=== PATIENT | female | born 1980 | race African-American/Black ===

== ENCOUNTER 2017-08-30 11:46 | Inpatient (IN) | payer MEDICAID ==
[~2017-08-30] VITALS: Ht 170.2 cm; Wt 88.5 kg
[2017-08-30 12:14] LABS: APPEARANCE SLT CLOUDY (CLEAR); BILIRUBIN NEGATIVE (NEGATIVE); COLOR YELLOW (YELLOW); GLUCOSE NEGATIVE (NEGATIVE); KETONE NEGATIVE (NEGATIVE); NITRITE NEGATIVE (NEGATIVE); PROTEIN 1+ mg/dL (NEGATIVE); SPECIFIC GRAVITY 1.025 (1.005-1.020); UROBILINOGEN NORMAL (NORMAL)
[2017-08-30 12:19] LABS: BACTERIA MODERATE /hpf (NONE SEEN); RED CELLS - URINE 25-50 /hpf (0-5)
[2017-08-30 12:21] LABS: MUCUS >1+ /lpf (NONE SEEN)
[2017-08-30 12:36] LABS: HCG SERUM NEGATIVE (NEGATIVE)
[2017-08-30 12:59] LABS: BASOPHILS 0.1 % (0-2); EOSINOPHILS 0 % (0-7); HEMATOCRIT 22.6 % (36.0-48.0); IMMATURE GRANULOCYTES 0.3 % (0-5); MCHC 27.4 g/dL (31.0-37.0); MCV 62.6 fL (80.0-100.0); MEAN PLATELET VOLUME 9.9 fL (7.4-10.4); MONOCYTES 3.8 % (2-11); NEUTROPHILS 87.8 % (40-80); RBC 3.61 10x6/uL (4.00-5.40); WBC 17.6 10x3/uL (4.8-10.8)
[2017-08-30 13:07] LABS: MCH 17.2 pg (26.0-34.0); PLATELET COUNT 483 10x3/uL (130-400)
[2017-08-30 13:09] LABS: HEMOGLOBIN 6.2 g/dL (12-16)
[2017-08-30 17:15] VITALS: BP 112/57; BMI 30.6
[2017-08-30 17:31] VITALS: BP 112/57
[2017-08-30 19:26] LABS: BASOPHILS 0.1 % (0-2); EOSINOPHILS 0.3 % (0-7); IMMATURE GRANULOCYTES 0.3 % (0-5); LYMPHOCYTES 18.4 % (15-50); MCHC 28.4 g/dL (31.0-37.0); MONOCYTES 5.7 % (2-11); NEUTROPHILS 75.2 % (40-80); PLATELET COUNT 405 10x3/uL (130-400); RBC 3.85 10x6/uL (4.00-5.40); RDW 21.2 % (11.5-14.5); WBC 15.4 10x3/uL (4.8-10.8)
[2017-08-30 19:29] LABS: HEMOGLOBIN 7.1 g/dL (12-16); MCH 18.4 pg (26.0-34.0); MCV 64.9 fL (80.0-100.0)
[2017-08-30 20:00] VITALS: BP 97/50
[2017-08-30 20:06] VITALS: BP 103/54
[2017-08-30 20:31] LABS: ALBUMIN 3.4 g/dL (3.4-5.0); ALKALINE PHOSPHATASE 52 U/L (46-116); ALT (SGPT) 13 U/L (10-68); BILIRUBIN - TOTAL 0.14 mg/dL (0.2-1.3); CALC OSMOLALITY 279 mosm/kg (275-300); CARBON DIOXIDE 25.3 mmol/L (21.0-32.0); CHLORIDE - SERUM 104 mmol/L (98-107); CREATININE - SERUM 0.8 mg/dL (0.6-1.3); GLUCOSE 112 mg/dL (74-106); POTASSIUM - SERUM 3.7 mmol/L (3.5-5.1); PROTEIN - SERUM 8.4 g/dL (6.4-8.2); SODIUM 139 mmol/L (136-145); UREA NITROGEN 15 mg/dL (7-18); eGFR NON AFRICAN AMERICAN 85 mL/min (90-120)
[2017-08-31 03:52] VITALS: BP 114/64
[2017-08-31 05:00] LABS: BASOPHILS 0.1 % (0-2); EOSINOPHILS 0.7 % (0-7); HEMOGLOBIN 7.7 g/dL (12-16); IMMATURE GRANULOCYTES 0.2 % (0-5); MCHC 28.5 g/dL (31.0-37.0); PLATELET COUNT 423 10x3/uL (130-400); RBC 4.02 10x6/uL (4.00-5.40); WBC 12.4 10x3/uL (4.8-10.8)
[2017-08-31 05:02] LABS: MCH 19.2 pg (26.0-34.0); MCV 67.2 fL (80.0-100.0)
[2017-08-31 06:04] LABS: ALBUMIN 2.7 g/dL (3.4-5.0); ALKALINE PHOSPHATASE 49 U/L (46-116); ALT (SGPT) 12 U/L (10-68); BILIRUBIN - TOTAL 0.28 mg/dL (0.2-1.3); CALCIUM 7.8 mg/dL (8.5-10.1); CARBON DIOXIDE 23.2 mmol/L (21.0-32.0); CHLORIDE - SERUM 107 mmol/L (98-107); CREATININE - SERUM 0.7 mg/dL (0.6-1.3); GLUCOSE 94 mg/dL (74-106); POTASSIUM - SERUM 3.2 mmol/L (3.5-5.1); PROTEIN - SERUM 7.3 g/dL (6.4-8.2); SODIUM 139 mmol/L (136-145); eGFR NON AFRICAN AMERICAN > 90 mL/min (90-120)
[2017-08-31 06:07] LABS: CALC OSMOLALITY 276 mosm/kg (275-300); UREA NITROGEN 9 mg/dL (7-18)
[2017-08-31 08:10] VITALS: BP 110/70
[2017-08-31 13:06] VITALS: BP 96/44
[2017-08-31 13:08] VITALS: Ht 170.2 cm; Wt 88.5 kg
[2017-08-31 19:58] VITALS: BP 101/55
[2017-09-01 04:00] VITALS: BP 98/54
[2017-09-01 04:54] LABS: BASOPHILS 0.1 % (0-2); EOSINOPHILS 1.3 % (0-7); HEMATOCRIT 30.5 % (36.0-48.0); HEMOGLOBIN 9.2 g/dL (12-16); IMMATURE GRANULOCYTES 0.3 % (0-5); LYMPHOCYTES 20.2 % (15-50); MCH 21.4 pg (26.0-34.0); MCHC 30.2 g/dL (31.0-37.0); MEAN PLATELET VOLUME 10.1 fL (7.4-10.4); MONOCYTES 5.7 % (2-11); NEUTROPHILS 72.4 % (40-80); PLATELET COUNT 340 10x3/uL (130-400); RBC 4.29 10x6/uL (4.00-5.40); RDW 23.4 % (11.5-14.5); WBC 14.7 10x3/uL (4.8-10.8)
[2017-09-01 04:55] LABS: MCV 71.1 fL (80.0-100.0)
[2017-09-01 05:20] LABS: ALBUMIN 2.5 g/dL (3.4-5.0); ALKALINE PHOSPHATASE 46 U/L (46-116); ALT (SGPT) 10 U/L (10-68); BILIRUBIN - TOTAL 0.23 mg/dL (0.2-1.3); CALC OSMOLALITY 278 mosm/kg (275-300); CALCIUM 8.4 mg/dL (8.5-10.1); CARBON DIOXIDE 24.2 mmol/L (21.0-32.0); CHLORIDE - SERUM 106 mmol/L (98-107); CREATININE - SERUM 0.7 mg/dL (0.6-1.3); GLUCOSE 94 mg/dL (74-106); POTASSIUM - SERUM 3.4 mmol/L (3.5-5.1); PROTEIN - SERUM 6.8 g/dL (6.4-8.2); SODIUM 141 mmol/L (136-145); UREA NITROGEN 7 mg/dL (7-18); eGFR NON AFRICAN AMERICAN > 90 mL/min (90-120)
[2017-09-01 08:20] VITALS: BP 104/45
[2017-09-01 12:48] VITALS: BP 110/70
[2017-09-01 16:55] VITALS: BP 108/66
[2017-09-01 20:00] VITALS: BP 96/52
[2017-09-02 04:00] VITALS: BP 107/65
[2017-09-02 04:58] LABS: BASOPHILS 0.2 % (0-2); EOSINOPHILS 2.2 % (0-7); HEMATOCRIT 30.1 % (36.0-48.0); HEMOGLOBIN 9.2 g/dL (12-16); IMMATURE GRANULOCYTES 0.2 % (0-5); LYMPHOCYTES 23.2 % (15-50); MCH 21.8 pg (26.0-34.0); MCHC 30.6 g/dL (31.0-37.0); MCV 71.3 fL (80.0-100.0); MEAN PLATELET VOLUME 9.8 fL (7.4-10.4); MONOCYTES 6.3 % (2-11); NEUTROPHILS 67.9 % (40-80); PLATELET COUNT 349 10x3/uL (130-400); RBC 4.22 10x6/uL (4.00-5.40); RDW 24.3 % (11.5-14.5); WBC 12.4 10x3/uL (4.8-10.8)
[2017-09-02 05:14] LABS: ALBUMIN 2.3 g/dL (3.4-5.0); ALKALINE PHOSPHATASE 53 U/L (46-116); ALT (SGPT) 29 U/L (10-68); BILIRUBIN - TOTAL 0.28 mg/dL (0.2-1.3); CALC OSMOLALITY 276 mosm/kg (275-300); CALCIUM 8.3 mg/dL (8.5-10.1); CARBON DIOXIDE 23.7 mmol/L (21.0-32.0); CHLORIDE - SERUM 107 mmol/L (98-107); CREATININE - SERUM 0.7 mg/dL (0.6-1.3); GLUCOSE 92 mg/dL (74-106); POTASSIUM - SERUM 3.6 mmol/L (3.5-5.1); PROTEIN - SERUM 6.6 g/dL (6.4-8.2); SODIUM 140 mmol/L (136-145); UREA NITROGEN 8 mg/dL (7-18); eGFR NON AFRICAN AMERICAN > 90 mL/min (90-120)
[2017-09-02 08:06] VITALS: BP 102/63
[2017-09-02 13:15] VITALS: BP 110/65
[2017-09-02] MEDS ORDERED: PROVERA10 MG PO (13:50)
[2017-09-02] MEDS ORDERED: FERROUS SULFAT325 MG PO (13:50)
== END 2017-09-02 14:49 | disposition home or self-care (01) | DRG 760 ==
LOC: D.ER 11:46 → OBSVTIME 15:07 → D.MS 15:07
PROVIDERS: Emergency Medicine; Family Medicine
DX: N94.6 Dysmenorrhea, unspecified (principal); D62 Acute posthemorrhagic anemia; N39.0 Urinary tract infection, site not specified; Z72.0 Tobacco use

== ENCOUNTER 2017-10-16 02:20 | Emergency (ER) | payer MEDICAID ==
[~2017-10-16] VITALS: Ht 170.2 cm; Wt 84.1 kg
[~2017-10-16 02:20] MED LIST: FERROUS SULFAT325 MG PO; PROVERA10 MG PO
[2017-10-16 02:22] VITALS: Ht 170.2 cm; Wt 84.1 kg
[2017-10-16] MEDS ORDERED: TRANEXAMIC ACI650 MG PO (02:33)
[2017-10-16 03:28] LABS: BASOPHILS 0.1 % (0-2); EOSINOPHILS 0.7 % (0-7); HEMOGLOBIN 9.9 g/dL (12-16); IMMATURE GRANULOCYTES 0.2 % (0-5); LYMPHOCYTES 12.6 % (15-50); MCH 24.9 pg (26.0-34.0); MCHC 30.9 g/dL (31.0-37.0); MCV 80.4 fL (80.0-100.0); MONOCYTES 4.6 % (2-11); NEUTROPHILS 81.8 % (40-80); PLATELET COUNT 324 10x3/uL (130-400); RBC 3.98 10x6/uL (4.00-5.40); RDW 25.8 % (11.5-14.5); WBC 14.5 10x3/uL (4.8-10.8)
[2017-10-16 03:41] LABS: ALBUMIN 3.3 g/dL (3.4-5.0); ALKALINE PHOSPHATASE 52 U/L (46-116); ALT (SGPT) 13 U/L (10-68); BILIRUBIN - TOTAL 0.17 mg/dL (0.2-1.3); CALC OSMOLALITY 279 mosm/kg (275-300); CALCIUM 9.1 mg/dL (8.5-10.1); CARBON DIOXIDE 29.2 mmol/L (21.0-32.0); CHLORIDE - SERUM 102 mmol/L (98-107); CREATININE - SERUM 0.7 mg/dL (0.6-1.3); GLUCOSE 112 mg/dL (74-106); POTASSIUM - SERUM 3.5 mmol/L (3.5-5.1); PROTEIN - SERUM 7.9 g/dL (6.4-8.2); SODIUM 139 mmol/L (136-145); UREA NITROGEN 15 mg/dL (7-18); eGFR NON AFRICAN AMERICAN > 90 mL/min (90-120)
[2017-10-16 03:43] LABS: HCG SERUM NEGATIVE (NEGATIVE)
[2017-10-16 04:00] LABS: APPEARANCE CLOUDY (CLEAR); BILIRUBIN NEGATIVE (NEGATIVE); COLOR DK YELLOW (YELLOW); GLUCOSE NEGATIVE (NEGATIVE); KETONE NEGATIVE (NEGATIVE); NITRITE NEGATIVE (NEGATIVE); PROTEIN 1+ mg/dL (NEGATIVE); UROBILINOGEN NORMAL (NORMAL)
[2017-10-16 04:02] LABS: UDS - AMPHET NEGATIVE QUAL (NEGATIVE); UDS - BARB NEGATIVE QUAL (NEGATIVE); UDS - BENZO NEGATIVE QUAL (NEGATIVE); UDS - COCAINE NEGATIVE QUAL (NEGATIVE); UDS - OPIATE NEGATIVE QUAL (NEGATIVE); UDS - PCP NEGATIVE QUAL (NEGATIVE); UDS - THC NEGATIVE QUAL (NEGATIVE)
[2017-10-16 04:07] LABS: BACTERIA MANY /hpf (NONE SEEN); EPITHELIAL CELLS 0-5 /hpf (0-5); MUCUS <1+ /lpf (NONE SEEN); WHITE CELLS - URINE 0-5 /hpf (0-5)
[2017-10-16 08:55] VITALS: BP 128/64
[2017-10-19 03:08] LABS: CHLAMYDIA TRACHOMATIS, NAA Negative (Negative)
== END 2017-10-16 08:56 | disposition home or self-care (01) ==
LOC: D.ER 02:20
PROVIDERS: Family Medicine
DX: N93.9 Abnormal uterine and vaginal bleeding, unspecified (principal); R10.9 Unspecified abdominal pain; F17.200 Nicotine dependence, unspecified, uncomplicated

== ENCOUNTER 2017-11-27 07:05 | Inpatient (IN) | payer MEDICAID ==
[2017-11-26 15:03] LABS: BASOPHILS 0.1 % (0-2); EOSINOPHILS 1.4 % (0-7); HEMATOCRIT 26.2 % (36.0-48.0); HEMOGLOBIN 7.7 g/dL (12-16); IMMATURE GRANULOCYTES 0.2 % (0-5); MCH 22.5 pg (26.0-34.0); MCHC 29.4 g/dL (31.0-37.0); MCV 76.6 fL (80.0-100.0); MEAN PLATELET VOLUME 9.5 fL (7.4-10.4); MONOCYTES 5.4 % (2-11); NEUTROPHILS 71.9 % (40-80); RBC 3.42 10x6/uL (4.00-5.40); WBC 10.3 10x3/uL (4.8-10.8)
[2017-11-26 15:15] LABS: PLATELET COUNT 391 10x3/uL (130-400)
[2017-11-26 15:17] LABS: ANION GAP 9.7 mmol/L (8-16); CALCIUM 8.6 mg/dL (8.5-10.1); CARBON DIOXIDE 26.9 mmol/L (21.0-32.0); CREATININE - SERUM 0.9 mg/dL (0.6-1.3); POTASSIUM - SERUM 3.6 mmol/L (3.5-5.1)
[2017-11-27] VITALS (9 sets, daily range): BP systolic 106–114; BP diastolic 64–76; Ht 170.2 cm; Wt 88.2 kg
[~2017-11-27] VITALS: Ht 170.2 cm; Wt 88.2 kg
--- NOTE | ~2017-11-27 | OP ---
PATIENT NAME: NATALIE CARTY MEDICAL RECORD: [id number] :76 LOCATION:[facility] ADMISSION DATE:11/27/17 SURGEON: TREVOR ZAMORA MD DATE OF OPERATION: 11/27/2017 PREOPERATIVE DIAGNOSES: 1. Anemia due to menorrhagia. 2. History of leiomyomata uteri. POSTOPERATIVE DIAGNOSES: 1. Anemia due to menorrhagia. 2. History of leiomyomata uteri. PROCEDURES: 1. Diagnostic laparoscopy. 2. Exploratory laparotomy. 3. Total abdominal hysterectomy with bilateral salpingectomy. SURGEON: Trevor Zamora MD TONE CABINET ASSEMBLER: Everardo SAW OPERATOR: Santosh Cornelius ANESTHETIC: General. FINDINGS: The uterus was enlarged. Several fibroids present obscuring visualization of the uterine artery with the laparoscope. The ovaries were unremarkable. SPECIMEN REMOVED: Uterus with tubes and cervix. SPECIMEN DISPOSITION: Pathology. ESTIMATED BLOOD LOSS: 150 cc. FLUIDS: Lactated Ringer's 2600 cc. URINE OUTPUT: 100 cc. Two units of packed red blood cells given due intraoperatively due to preoperative hematocrit. DRAIN: Alvarez to gravity. COMPLICATION: None. INDICATION: The patient is a 37-year-old female with a known history of L uteri. The patient has been admitted and transfused in the past. The patient's hematocrit was noted to be low prior to this procedure and she consented for transfusion during the procedure. The patient was given all risks and benefits as well as limitations of this procedure. DESCRIPTION OF PROCEDURE: After informed consent was assured, the patient was taken to the operating room, where anesthetic was obtained and the patient was OPERATIVE REPORT [id number] NATALIE CARTY positioned. An incision was made in the umbilicus to accommodate a 5-mm trocar, which was inserted without difficulty. Pneumoperitoneum was developed and visualization of the patient's pelvis revealed the above findings. Due to the limitation of the visualization of the vascular bundles of both right and left side of the uterus, it was felt prudent to convert to an open procedure. An incision was now made on the abdomen and carried down to the underlying layer of the fascia, which was opened in the midline and extended laterally. The patient now has rectus bellies and the peritoneum was entered. The bowel was packed free of the pelvis and Eduar clamps were placed on the cornual regions of the uterus. With the uterus on traction, the left round ligament was transfixed. The broad ligament was now opened through round ligament and the blunt dissection was carried down anteriorly and the bladder flap was developed to the midline. Posteriorly, a window was made in the posterior leaf of the broad ligament and a Eduar clamp was applied through this window underneath the tube. A second clamp was applied here. This pedicle was now developed and secured with ligature. The dissection was continued down on the patient's left side of the uterus until the vascular bundle was exposed. The vascular bundle of the left was now clamped, cut, and tied. Attention was directed to the right side, where the right round ligament was transfixed in similar fashion and dissection was carried out underneath the tube as previously described. The bladder flap was developed fully anteriorly and the vascular bundle of the right was clamped, cut and tied. The remaining portion of the cardinal ligaments were serially clamped, cut, and tied until the uterosacral ligament was reached and the cervix crossclamped with Eduar clamps. Once the uterus has been removed, the cuff was closed with interrupted stitches using Vicryl. The pelvis was now copiously irrigated and irrigant was removed. Inspection revealed adequate hemostasis. The patient now had packing removed and the fascia was closed in a running fashion with absorbable suture. Subcutaneous tissue was inspected. Bleeding vessels were cauterized and skin was closed with a subcuticular stitch. Sponge, lap, and needle count was correct times 2. The patient was awakened to the recovery room in stable condition. TRANSINT:[id number] Voice Confirmation ID: [id number] DOCUMENT ID: [id number] TREVOR ZAMORA MD at 1217 CC: [id number] DICTATION DATE: 12/19/17 1639 HALL WORKER: 12/19/17 1713 DIS IN 11/29/17 [id number] [place] [address]
--- NOTE | ~2017-11-27 | DS ---
PATIENT:NATALIE CARTY :76 MEDICAL RECORD: [id number] DISCHARGE SUMMARY ADMISSION DATE: 11/27/17 DISCHARGE DATE: DATE OF ADMISSION: 11/27/2017. DATE OF DISCHARGE: 11/29/2017. ADMISSION DIAGNOSIS: Symptomatic L uteri. DISCHARGE DIAGNOSIS: Symptomatic L uteri. PROCEDURE: 1. Diagnostic laparoscopy. 2. Total abdominal hysterectomy with bilateral salpingectomy. ATTENDING: Eileen Zamora MD HISTORY OF PRESENT ILLNESS: See the written H&P in the chart. SUMMARY OF HOSPITALIZATION: The patient was admitted and underwent procedure without incident. At the time of discharge, she is tolerating regular diet, voiding without difficulty and has adequate pain control on Percocet and Toradol. The patient will be discharged home on Percocet and ibuprofen for pain management. Standard postoperative precautions have been reviewed. The patient is afebrile. Incisions clean, dry and intact with an appropriately tender incision site and abdomen. Follow up in 2 weeks. TRANSINT:[id number] Voice Confirmation ID: [id number] DOCUMENT ID: [id number] EILEEN ZAMORA MD at 1609 CC: [id number] DICTATION DATE: 11/29/17 1259 TECHNOLOGY MANAGER: 11/29/17 [address] [place] [address]
[~2017-11-27 07:05] MED LIST changes: +TRANEXAMIC ACI650 MG PO
[2017-11-27 12:15] LABS: HCG URINE NEGATIVE (NEGATIVE)
[2017-11-27 15:30] LABS: BASOPHILS 0.1 % (0-2); EOSINOPHILS 0.6 % (0-7); IMMATURE GRANULOCYTES 0.3 % (0-5); LYMPHOCYTES 14.2 % (15-50); MCHC 31.4 g/dL (31.0-37.0); MEAN PLATELET VOLUME 9.4 fL (7.4-10.4); MONOCYTES 2.8 % (2-11); RDW 19.6 % (11.5-14.5)
[2017-11-27 15:31] LABS: HEMATOCRIT 31.8 % (36.0-48.0); MCV 79.5 fL (80.0-100.0); PLATELET COUNT 265 10x3/uL (130-400); WBC 15.7 10x3/uL (4.8-10.8)
[2017-11-27 15:41] LABS: CALC OSMOLALITY 271 mosm/kg (275-300); CALCIUM 7.6 mg/dL (8.5-10.1); CARBON DIOXIDE 26.1 mmol/L (21.0-32.0); CHLORIDE - SERUM 104 mmol/L (98-107); CREATININE - SERUM 0.8 mg/dL (0.6-1.3); GLUCOSE 113 mg/dL (74-106); POTASSIUM - SERUM 3.4 mmol/L (3.5-5.1); SODIUM 136 mmol/L (136-145); eGFR NON AFRICAN AMERICAN 85 mL/min (90-120)
[2017-11-27 15:45] LABS: UREA NITROGEN 9 mg/dL (7-18)
[2017-11-28 03:30] VITALS: BP 111/64
[2017-11-28 08:15] VITALS: BP 110/61
[2017-11-28 11:22] VITALS: BP 101/60
[2017-11-28 15:40] VITALS: BP 110/67
[2017-11-28 16:45] VITALS: BP 111/67
[2017-11-28 19:50] VITALS: BP 109/51
[2017-11-29 04:13] VITALS: BP 106/60
[2017-11-29 07:50] VITALS: BP 101/56
== END 2017-11-29 14:00 | disposition home or self-care (01) | DRG 743 ==
LOC: D.OPS 07:05 → D.WS 07:05 → D.PAN 09:35 → D.OPS 09:35 → D.PAN 09:45 → D.OPS 10:45 → D.WS 15:37 → D.OPS 15:38 → D.WS 15:38
PROVIDERS: Obstetrics & Gynecology
PROC: 0UT94ZZ Resection of Uterus, Percutaneous Endoscopic Approach (ICD-10-PCS; principal; 2017-11-27 09:45)
PROC: 0UB74ZZ Excision of Bilateral Fallopian Tubes, Percutaneous Endoscopic Approach (ICD-10-PCS; 2017-11-27 09:45)
DX: N85.2 Hypertrophy of uterus (principal); D25.9 Leiomyoma of uterus, unspecified; Z72.0 Tobacco use; D64.9 Anemia, unspecified